=== PATIENT | male | born 1965 | race Caucasian/White ===

== ENCOUNTER 2018-11-29 15:59 | Emergency (ER) | payer OTHER, SELFPAY ==
[2018-11-29 16:02] VITALS: BP 162/81; PULSE 80; RESP 16; TEMP 36.5; O2SAT 100
--- NOTE | 2018-11-29 16:23 | W.ED.GENAD ---
Discharge Plan Disposition Patient Disposition: HOME Condition: Stable Discharge Details Chief Complaint: Orthopedic Clinical Impression: Muscle tear Primary Care Provider: Carlos Driscoll ED Provider: Josep Damian Home Meds and New Rx's Prescriptions: No Action triamcinolone acetonide 0.1 % cream 1 applic TP BID Qty: 30 RF: 1 tamsulosin 0.4 mg capsule See Rx Instructions PO HS Qty: 0 RF: 3 Discharge Instructions Additional Instructions: May continue gentle compression to area, please remove at bedtime. You will have ongoing bruising. Walking in waist deep water will assist in mobilizing the resolving hemosiderin. Please follow-up with physical therapy. Return for any acute Stand Alone Forms: Physical Therapy Referral Medical Decision Making 53-year-old male who fell on a flexed right knee 4 days ago and felt the immediate development of the medial thigh lump. Since that time is developed diffuse right lower extremity ecchymosis and swelling. He has not had any difficulty with gait. His leg extension is normal. On exam he does not appear to have quadriceps rupture. More likely medial thigh muscle rupture such as sartorius. The knee is intact. We will refer him to physical therapy. Do not feel there is indication for further work-up at this time. Discussed with him anticipated course of resolution. HPI General Mode of arrival: ambulatory. Date/Time Provider Initiated Documentation: 11/29/18 16:07. Limitations to Documentation: no limitations. Information obtained by: patient. History of Present Illness 53 year old M presents to the emergency department with the chief complaint of Right thigh injury 4 days ago, described as moderate, Quality is described as dull and constant, and is localized to the right and lower extremity. Patient reports no radiation. Patient started experiencing this day(s) and it has been constant. No relieving factors improve symptom(s), Movement worsens symptoms . Patient notes no other symptoms.. Patient did receive the following treatments prior to arrival, NSAID Related Data Home Medications Medication Instructions Recorded Confirmed tamsulosin 0.4 mg capsule See Rx Instructions PO HS #0 05/30/18 11/29/18 tab-cap triamcinolone acetonide 0.1 % 1 applic TP BID #30 gm 08/17/18 11/29/18 topical cream Previous Rx's Medication Instructions Recorded tamsulosin 0.4 mg capsule See Rx Instructions PO HS #0 02/06/19 tab-cap triamcinolone acetonide 0.1 % 1 applic TP BID #30 gm 08/17/18 topical cream Allergies Allergy/AdvReac Type Severity Reaction Status Date / Time apple Allergy Unknown Skin Rash Verified 11/29/18 16:07 General Stated Complaint: Orthopedic ANNALISA: 4 Review of Systems Review of Systems 6 systems reviewed and otherwise negative FOR[facility]LY [facility] Surgical History BROKEN TOE Family History Mother Essential hypertension Father Diabetes Heart disease Brother Alcohol abuse Essential hypertension Substance abuse Maternal Grandfather No problems noted. Paternal Grandfather Heart disease Myocardial infarction Maternal Grandmother No problems noted. Paternal Grandmother Diabetes Son No problems noted. Daughter Depression Social History Smoking/Tobacco Use Status: Current every day Tobacco Type: smokeless tobacco Quit status: considering quitting Alcohol Intake: current Alcohol Intake frequency: a few times a month Alcohol type: beer Drug use: Never Substance use type: does not use Caregiver/Support person: No Household members: spouse and children Housing: house Communication Needs: None Do you need help understanding health information?: Rarely Pets and animals: Yes Pets and animals: cat(s) Sexually active: Yes Do you think of yourself as: straight/heterosexual Current gender identity: male What is your relationship status?: How often do you talk on the phone with friends or family?: once per week How often do you get together with friends or relatives?: once per week How often do you attend evangelical or mosque services?: 1-3 times per year Do you belong to any clubs or organized social groups?: yes Panel score (0-1 are the most socially isolated patients): 2 What type of physical activity do you participate in: other Details: Tae [employer]ondo Duration: 60-90 minutes/day Frequency: 1-2 times per week Queenie/Yarsani: No preference Agree to transfusion: No Seatbelt use: always Drive intox or ride w/intox taxi 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 Pleasant, well groomed, interactive. HEAD: Normocephalic, atraumatic ENT: Mucous membranes moist, oropharynx unremarkable, External ear exam unremarkable EYES: PERRL, EOMI EXT: Full ROM, motor is graded 5 out of 5 in the bilateral lower extremity. There is ecchymosis/bruising from the right mid thigh medially distal all the way to the foot and ankle. Sensation intact throughout. Abduction and abduction of the right leg are normal. Neuro: Grossly normal neurologic exam, conversant, interactive. Psych: Speech fluent, thoughts congruent, affect normal Course Vital Signs Temperature 36.5 C 11/29/18 16:02 Pulse 80 11/29/18 16:02 Respiratory Rate 16 11/29/18 16:02 Blood Pressure 162/81 H 11/29/18 16:02 Pulse Oximetry 100 11/29/18 16:02 Temperature 36.5 C 11/29/18 16:02 Temperature Source Skin 11/29/18 16:02 Pulse 80 11/29/18 16:02 Respiratory Rate 16 11/29/18 16:02 Respiratory Effort Non-Labored 11/29/18 16:06 Blood Pressure 162/81 H 11/29/18 16:02 Blood Pressure Position Sitting 11/29/18 16:02 Pulse Oximetry 100 11/29/18 16:02 Oxygen Delivery Method Room Air 11/29/18 16:02 Oxygen Flow Rate 0 11/29/18 16:02 Pain Level 2 11/29/18 16:02
== END 2018-11-29 16:39 | disposition home or self-care (01) ==
LOC: ER 16:41
PROVIDERS: Emergency Provider Emergency Medicine; PCP Family Medicine
DX: S76.811A Strain of other specified muscles, fascia and tendons at thigh level, right thigh, initial encounter (principal); W01.198A Fall on same level from slipping, tripping and stumbling with subsequent striking against other object, initial encounter
CPT/HCPCS: 99282

== ENCOUNTER 2018-12-17 09:17 | Outpatient (CLI) | payer OTHER, SELFPAY ==
--- NOTE | 2018-12-17 16:00 | DI.RAD_ITS ---
SYMPTOM/DIAGNOSIS: INJURY/EFFUSION S89.91XA RIGHT KNEE: There is soft tissue swelling seen anterior to the patella tendon. No fracture or joint space narrowing is seen. No soft tissue calcifications or joint effusion seen. IMPRESSION: Pre-patellar soft tissue swelling.
== END 2018-12-17 09:37 ==
PROVIDERS: PCP Family Medicine; Visit Provider Family Medicine
DX: S89.91XA Unspecified injury of right lower leg, initial encounter (principal); M79.89 Other specified soft tissue disorders; M25.561 Pain in right knee
CPT/HCPCS: 73562

== ENCOUNTER 2019-11-01 03:26 | Outpatient (CLI) | payer OTHER, SELFPAY ==
[2019-11-01 08:42] LABS: Anion Gap 8.3 mmol/L (3-11); BUN 16 mg/dL (7-18); CO2 27.7 mmol/L (21.0-32.0); CREATININE 1.27 mg/dL (0.70-1.30); Calcium 9.1 mg/dL (8.5-10.1); Calculated LDL 140 mg/dL (<100); Chloride 105 mmol/L (98-107); Cholesterol 229 mg/dL (<200); Estimated GFR 59.79 (mL/min/1.73m2); Glucose 93 mg/dL (74-106); HDL Cholesterol 49 mg/dL (40-60); Potassium 4.7 mmol/L (3.5-5.1); Sodium 141 mmol/L (136-145); Triglyceride 201 mg/dL (<150)
== END 2019-11-01 03:46 ==
PROVIDERS: PCP Family Medicine; Visit Provider Family Medicine
DX: E78.5 Hyperlipidemia, unspecified (principal); I10 Essential (primary) hypertension
CPT/HCPCS: 36415; 80048; 80061

== ENCOUNTER 2020-05-07 07:25 | Emergency (ER) | payer OTHER, SELFPAY ==
[2020-05-07] VITALS (40 sets, daily range): BP systolic 138–189; BP diastolic 82–105; PULSE 64–87; RESP 14–36; TEMP 36.6; O2SAT 80–97
--- NOTE | 2020-05-07 07:30 | RT.EKG_ITS ---
APPROVED REPORT Exam: Resting ECG Patient Location: E HR:77 bpm ECG Measurements Heart Rate 77 AXIS HI 124 P 29 QRSd 80 QRS 15 QT 362 T 29 QTc 410 Conclusion Sinus rhythm...normal P axis, V-rate 60- 99 Physician: Rate 77, sinus rhythm, intervals normal, no STEMI, no significant ST elevations or depress ions, no evidence of significant heart strain.
--- NOTE | 2020-05-07 07:30 | DI.RAD_ITS ---
EXAM: XR CHEST 2V PA LATERAL CLINICAL HISTORY: left chest pain TECHNIQUE: 2D digital imaging was performed. COMPARISON: CR CHEST 2 VIEWS PA,LAT from 08/01/2013 FINDINGS: The heart is not enlarged. The lungs are clear and well expanded. No pleural effusion seen. Mediastin al contours appear intact. IMPRESSION: Normal chest. RADIATION DOSE DELIVERED: Total DLP
--- NOTE | 2020-05-07 07:38 | ED.GENADUL_ITS ---
Discharge Plan Disposition Patient Disposition: HOME Condition: Stable Discharge Details Clinical Impression: Chest heaviness Primary Care Provider: Ketan Rodríguez ED Provider: Josep Damian Home Meds and New Rx's Prescriptions: No Action No Known Home Meds RF: 0 Discharge Instructions Instructions: Chest Pain (ED) Additional Instructions: We have ordered an outpatient stress test for you with a preprocedure COVID-19 test done today. Home to rest today. Return if you develop persistent chest discomfort, shortness of breath, or any other acute concerns. Medical Decision Making <Tej Ramirez, - Last Filed: 05/07/20 07:44> 55-year-old male with a past medical history of previous kidney stones, obstructive sleep apnea, hypertension, presents today for evaluation of chest heaviness. Patient states that for the last 1 to 2 weeks he has been experiencing mild chest heaviness, described as an achy heavy sensation in his left chest. Does not appear to be worsened with exertion, it seems to come and go without any particular exacerbating or relieving factors. Today and yesterday it notably worsened, independent of any exacerbating component, and also developed an associated left arm tingling and achiness. He denies any pleuritic chest pain, he denies any symptoms like this otherwise in the past. He denies any history of personal cardiac disease but he does have a family history of cardiac disease and Iuhaa-Tubhgjfth-Okent in his son and myocardial infarction in his father at the age of 65. Patient denies any tobacco abuse, IV or illicit drug use. He denies any previous PE, recent surgeries, long trips or procedures. He does though admits to feeling of tightness in his left calf a few days ago, and then that transitions to a feeling of tightness in his left medial thigh, both of which have now resolved. He denies any syncope, but does admit to mild occasional lightheadedness and fogginess. Patient has no other complaints at this time. Exam is notably unremarkable, vital signs stable, initial EKG shows no signs of STEMI, Qazmj-Auoqzeuwv-Edjrm, or other significant abnormality. Differential is broad, but includes atypical cardiac etiology, occasional dysrhythmia, is leg pain is odd, and may be associated with DVT but this seems well unlikely. We will get a D-dimer. Patient will be given 324 aspirin, we will monitor closely and reassess. The patient will be signed out to my colleague Dr. Josep Damian for follow-up on all labs and imaging, with reassessment. EKG 7: 32 Rate 77, sinus rhythm, intervals normal, no STEMI, no significant ST elevations or depressions, no evidence of significant heart strain. <Josep Damian MD - Last Filed: 05/07/20 11:03> 54-year-old male signed out to me by Dr. Ramirez. Please see his note regarding initial presentation, exam, plan of care. Patient observed on a director of cardiac cath lab over 3+ hours. He had no persistent complaint of discomfort. 2 separate troponins were obtained and negative. D- dimer was negative. Chest x-ray unremarkable. I do feel patient ought to have outpatient stress test which I have ordered. We will do a preprocedural Covid test prior to discharge. He is stable and improved, understands indications to return to the ER for reevaluation, and will follow-up for outpatient stress testing. * HPI <Tej Ramirez DO - Last Filed: 05/07/20 07:44> General Date/Time Provider Initiated Documentation: 05/07/20 07:29 . HPI Narrative: 55-year-old male with a past medical history of previous kidney stones, obstructive sleep apnea, hypertension, presents today for evaluation of chest heaviness. Patient states that for the last 1 to 2 weeks he has been expe riencing mild chest heaviness, described as an achy heavy sensation in his left chest. Does not appear to be worsened with exertion, it seems to come and go without any particular exacerbating or relieving factors. Today and yesterday it notably worsened, independent of any exacerbating component, and also developed an associated left arm tingling and achiness. He denies any pleuritic chest pain, he denies any symptoms like this otherwise in the past. He denies any history of personal cardiac disease but he does have a family history of cardiac disease and Pjoqt-Ctjyyiwzt-Vfywb in his son and myocardial infarction in his father at the age of 65. Patient denies any tobacco abuse, IV or illicit drug use. He denies any previous PE, recent surgeries, long trips or procedures. He does though admits to feeling of tightness in his left calf a few days ago, and then that transitions to a feeling of tightness in his left medial thigh, both of which have now resolved. He denies any syncope, but does admit to mild occasional lightheadedness and fogginess. Patient has no other complaints at this time. Related Data Home Medications Medication Instructions Recorded Confirmed Unknown [No Known Home Meds] 05/07/20 05/07/20 Allergies Allergy/AdvReac Type Severity Reaction Status Date / Time apple Allergy Unknown Skin Rash Verified 05/07/20 07:44 General ANNALISA: 4 Review of Systems <Tej Ramirez DO - Last Filed: 05/07/20 07:44> All systems reviewed & are unremarkable except as noted in HPI and below PFSH <Tej Ramirez DO - Last Filed: 05/07/20 07:44> Medical History Knee effusion, right ice, elevation above the level of the heart avoid overuse if not improved in 1 week, will consider draining the knee Pt verbalized understanding and agreement with plan Surgical History BROKEN TOE Family History Mother Essential hypertension Father , 62 Diabetes Heart disease Brother Alcohol abuse Essential hypertension Substance abuse Maternal Grandfather No problems noted. Paternal Grandfather Heart disease Myocardial infarction Maternal Grandmother No problems noted. Paternal Grandmother Diabetes Son No problems noted. Daughter Depression Social History Smoking/Tobacco Use Status: Never Tobacco: How many years used: 40 Smokeless tobacco user: chewing tobacco Quit status: considering quitting Smoking risk assessment performed?: Yes Alcohol Intake: current Alcohol Intake frequency: a few times a month Alcohol type: beer Drug use: Never Substance use type: does not use Caregiver/Support person: No Household members: spouse and children Housing: house Communication Needs: None Do you need help understanding health information?: Rarely Pets and animals: Yes Pets and animals: cat(s) Sexually active: Yes Do you think of yourself as: straight/heterosexual Current gender identity: male What is your relationship status?: How often do you talk on the phone with friends or family?: once per week How often do you get together with friends or relatives?: once per week How often do you attend congregational or religion services?: 1-3 times per year Do you belong to any clubs or organized social groups?: no Panel score (0-1 are the most socially isolated patients): 1 Duration: 60-90 minutes/day Frequency: 1-2 times per week Queenie/Adventist: No preference Agree to transfusion: No Seatbelt use: always Helmet use: Yes Drive 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 3.ENT: Atraumatic external nose and ears. Moist MM. Neck: Symmetric, trachea mid line, No thyromegaly. 4.CVS: +S1/S2, No murmurs or gallops. Peripheral pulses 2+ and equal in all extremities. Brisk capillary refill in all extremities. 5.RESP: Unlabored respiratory effort. Clear to auscultation bilaterally. No wheezes rales or rhonchi 6.GI: Soft, Nontender/Nondistended, No hepatosplenomegaly. No guarding or rebound. 7.MSK: Normocephalic/Atraumatic, Extremities w/o deformity or ttp No cyanosis or clubbing, Normal movement of all extremities, no calf tenderness on the left or right, no pitting edema. Pulses intact throughout. 8.Skin: Warm, Dry. No rashes or lesions. 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 Sensation grossly intact, no focal neurologic deficits. 10.Psych: (AAO) x3. Appropriate mood and affect Sign Out <Tej Ramirez DO - Last Filed: 05/07/20 07:44> Sign Out Data: Sign Out Comment: Follow-up on labs, imaging. Chest tightness in the left. Recommend serial tropes Last updated by Tej Ramirez DO at 05/07/20 07:44
[2020-05-07] MEDS: Aspirin 81 MG CHEW 324 MG CH (07:46)
[2020-05-07 07:48] LABS: Abs Immature Grans 0.02 10^3/uL (0.0-0.06); Absolute Basophil Count 0.03 10^3/uL (0.0-0.2); Absolute Eosinophil Count 0.12 10^3/uL (0.0-0.7); Absolute Lymphocyte Count 1.39 10^3/uL (1.2-3.4); Absolute Monocyte Count 0.31 10^3/uL (0.1-0.8); Absolute Neutrophil Count 3.35 10^3/uL (1.2-6.7); Basophils % 0.6; Eosinophils % 2.3; HCT 46.7 % (40.0-50.0); HGB 16.2 g/dL (13.5-17.5); Immature Grans % 0.4; Lymphocytes % 26.6; MCH 29.5 pg (27.0-33.0); MCHC 34.7 % (32.0-36.0); MCV 84.9 fL (80-95); MPV 10.3 fL (8.0-11.0); Monocytes % 5.9; Neutrophils % 64.2; Nucleated RBC 0 %; Platelet Count 203 10^3/uL (130-400); RDW 12.2 % (11.8-14.1); RDW-SD 37.8 fL; WBC 5.22 10^3/uL (4.4-10.8)
[2020-05-07 07:56] LABS: Bilirubin Negative (Negative); Blood Trace-lysed (Negative); Clarity Clear (Clear); Glucose Negative (Negative); Ketones Negative (Negative); Leukocyte Esterase Negative (Negative); Nitrite Negative (Negative); Specific Gravity 1.025 (1.005-1.025); Urobilinogen 0.2 EU/dL (Up TO 0.2)
[2020-05-07 07:58] LABS: Lipase 112 U/L (73-393)
[2020-05-07 07:59] LABS: Ammonia 17 umol/L (11-32)
[2020-05-07 08:01] LABS: Epithelial Cells Rare HPF (Negative); RBC 0-2 HPF (0-2); WBC 0-2 HPF (0-5)
[2020-05-07 08:02] LABS: Bacteria Negative HPF (Negative); C & S Indicated? No; Casts Negative LPF (Negative); Crystals Negative HPF (Negative); Mucus Negative (Negative)
[2020-05-07 08:02] LABS: PTT Activated 26.3 sec (21.0-27.5); Prothrombin Time 10.2 sec (9.3-11.0)
[2020-05-07 08:07] LABS: ALT 35 U/L (16-63); AST 17 U/L (15-37); Albumin 4.4 g/dL (3.4-5.0); Alkaline Phosphatase 85 U/L (46-116); Anion Gap 8.8 mmol/L (3-11); BUN 19 mg/dL (7-18); Bilirubin, Total 0.5 mg/dL (0.2-1.0); CO2 26.2 mmol/L (21.0-32.0); CREATININE 1.27 mg/dL (0.70-1.30); Calcium 8.9 mg/dL (8.5-10.1); Chloride 103 mmol/L (98-107); Estimated GFR 59.55 (mL/min/1.73m2); Glucose 100 mg/dL (74-106); Magnesium 2.3 mg/dL (1.8-2.4); NT-proBNP 33 pg/mL (<300); Potassium 4.2 mmol/L (3.5-5.1); Sodium 138 mmol/L (136-145); Total Protein 7.8 g/dL (6.4-8.2); Troponin I < 0.05 ng/mL (<0.06)
[2020-05-07 08:17] LABS: D-Dimer 222 ng/mlFEU (<500)
--- NOTE | 2020-05-07 10:30 | RT.EKG_ITS ---
APPROVED REPORT Exam: Resting ECG Patient Location: E HR:69 bpm ECG Measurements Heart Rate 69 AXIS TX 131 P 28 QRSd 81 QRS 12 QT 370 T 29 QTc 395 Conclusion Sinus rhythm.
[2020-05-07 10:58] LABS: Troponin I < 0.05 ng/mL (<0.06)
[2020-05-08 15:34] LABS: COVID-19 RT-PCR Result NEGATIVE (Negative)
--- NOTE | 2020-05-08 16:54 | NUR.NOTE ---
Nursing Note: Contacted pt via phone and notified of negative covid test results.
== END 2020-05-07 11:25 | disposition home or self-care (01) ==
PROVIDERS: Student in an Organized Health Care Education/Training Program; Emergency Provider Emergency Medicine; PCP Family Medicine
DX: R07.89 Other chest pain (principal); R20.2 Paresthesia of skin; I10 Essential (primary) hypertension; Z82.49 Family history of ischemic heart disease and other diseases of the circulatory system; Z03.818 Encounter for observation for suspected exposure to other biological agents ruled out
CPT/HCPCS: 36415; 80053; 83690; 93005; 99285; U0003; 71046; 81003; 81015; 82140; 83735; 83880; 84484; 85025; 85379; 85610; 85730; 93010

== ENCOUNTER → 2020-05-14 02:14 | Outpatient (CLI) | payer OTHER, SELFPAY ==
--- NOTE | 2020-05-14 14:00 | ETT_ITS ---
APPROVED REPORT Exam: Exercise Treadmill Patient Location: Out-Patient Room/Bed: Stress Nurse: Gina Bolton RN Ordering Provider:NAMITA SCHAEFER, Contact Number: [phone] BMI: 33.20 Baseline Rhythm: Sinus Rhythm Indications: Chest pain Medical History Medical History: REMBERTO, Hypertension Cardiac Medications: None. Allergies: Apple Cardiac Risk Factors: Hypertension, HLD, family hx Previous Cardiac Procedures: None. Pretest Chest Pain Characteristics: None. Exercise History: Sedentary Physical Disabilities: None. Lung Sounds: Clear to auscultation Heart Sounds: Regular Stress Test Details Test: Exercise stress testing was performed using a [place] protocol. Rest Stress HR Resting HR Supine: 77 bpm Max Heart Rate (APMHR): 168 bpm Resting HR Standin bpm Target HR (85% APMHR): 142 bpm Max HR Achieved: 176 bpm % of APMHR: 104 Recovery HR: 99 bpm HR response to stress: Normal HR response to stress BP Resting BP Supine: 152/90 mmHg Resting BP Standin/92 mmHg Max BP: 178/70 mmHg Recovery BP: 146/88 mmHg BP response to stress: Normal blood pressure response to stress. ECG Resting ECG: Sinus Rhythm Ectopy: None. Stress ECG: Sinus Tachycardia ST Change: Horizontal ST depression Lead(s): II, AVF, V3, V4, V5, V6 Stage: [address] Deviation: 2.5 mm Arrhythmia: PVCs Recovery ECG: Sinus Rhythm Recovery ST Change: Horizontal ST depression Lead(s): II, AVF, V3, V4, V5, V6 Recovery ST Deviation: 1 mm Recovery Arrhythmia: PVC Comment: Return to baseline by minute 3 Clinical Reason for Termination: Dyspnea Stress Symptoms: Dyspnea Exercise duration: 12 min55 sec Highest Stage Reached: Stage 5: 5.0 mph at 18% grade. Exercise capacity: 14.11 METs Hernandez Treadmill Score: 10.7 Rate Pressure Product: [id number] Stress ECG Conclusion 1. Electrocardiogram showed voltage for left ventricular hypertrophy 2. Patient exercised on the [place] protocol and completed a workload of 14.11 METS, limited by shortne ss of breath. Excellent functional capacity 3. Normal heart rate and blood pressure response to exercise 4. The patient achieved 100% of predicted heart rate for age 5. Electrocardiographically the test was consistent with myocardial ischemia with anterolateral ST de pression noted at peak exercise 6. Suggest repeat exercise testing with imaging if clinically indicated Hernandez Treadmill Score is 10.7 which is Low risk. Stress Test Summary STAGE Time (mins) Speed (mph) Grade (%) HR BP SYMPTOMS METS Supine 77 152/90 Standing 88 144/92 1 3 1.7 10 125 158/86 4.6 2 6 2.5 12 141 162/82 7 3 9 3.4 14 156 166/80 10.2 4 12 4.2 16 167 12.9 1 min recovery 138 178/70 3 min recovery 107 166/74 6 min recovery 99 146/88
== END ==
PROVIDERS: PCP Family Medicine; Visit Provider Emergency Medicine
DX: R07.9 Chest pain, unspecified (principal); I10 Essential (primary) hypertension; E78.5 Hyperlipidemia, unspecified; Z82.49 Family history of ischemic heart disease and other diseases of the circulatory system
CPT/HCPCS: 93017

== ENCOUNTER 2020-11-17 03:51 | Outpatient (CLI) | payer OTHER, SELFPAY ==
[2020-11-17 15:46] LABS: Cholesterol 221 mg/dL (<200); HDL Cholesterol 45 mg/dL (40-60); Triglyceride 504 mg/dL (<150)
[2020-11-17 16:15] LABS: LDL CHOLESTEROL 117 mg/dL (<100)
== END 2020-11-17 03:52 | disposition home or self-care (01) ==
LOC: LBO 03:51
PROVIDERS: PCP Nurse Practitioner Family; Visit Provider Nurse Practitioner Family
DX: E78.5 Hyperlipidemia, unspecified (principal)
CPT/HCPCS: 36415; 80061; 83721

== ENCOUNTER 2021-03-29 14:21 | Emergency (ER) | payer OTHER, SELFPAY ==
[2021-03-29] VITALS (27 sets, daily range): BP systolic 143–144; BP diastolic 88–91; PULSE 56–85; RESP 14–25; TEMP 36.3; O2SAT 96–99
--- NOTE | 2021-03-29 14:15 | RT.EKG_ITS ---
APPROVED REPORT Exam: Resting ECG Reason for Exam: chest pain Patient Location: E HR:74 bpm ECG Measurements Heart Rate 74 AXIS VT 127 P 29 QRSd 81 QRS 14 QT 367 T 43 QTc 406 Conclusion Sinus rhythm...normal P axis, V-rate 60- 99. Sinus. No STEMI. I have reviewed and interpreted ECG and agree with software generated interpretation.
--- NOTE | 2021-03-29 14:44 | ED.GENADUL_ITS ---
Discharge Plan Disposition Patient Disposition: HOME Condition: Stable Discharge Details Clinical Impression: Chest pain Primary Care Provider: David Hernandez ED Provider: Jagruti Kolb Home Meds and New Rx's Prescriptions: New atorvastatin 10 mg tablet 10 mg PO DAILY Qty: 30 RF: 0 aspirin 81 mg tablet,chewable 81 mg PO DAILY Qty: 30 RF: 0 Continued amlodipine 10 mg tablet 10 mg PO DAILY Qty: 90 RF: 4 ciclopirox [Ciclodan] 8 % solution 1 applic topical QHS 28 Days Qty: 6.6 RF: 3 tamsulosin 0.4 mg capsule 0.4 mg PO DAILY Qty: 90 RF: 4 Discharge Instructions Instructions: Chest Pain (ED) Additional Instructions: Take the cholesterol medication once a day as prescribed. Please follow-up closely within the next 3 to 5 days with PCP. They will call you to schedule a stress test. You are placed on a care management list to follow-up with cardiology within the next 1 to 2 weeks. Take a chewable baby aspirin daily. Follow up with primary care provider in 3-5 days. Return to ED sooner if any worsening or concerns. Increase oral fluids. Please take Tylenol or Ibuprofen with food every 4-6 hours as needed for pain and swelling. Referrals: David Hernandez NP [Primary Care Provider] - 5 days Maye Montano MD [ [facility] STAFF PHYSICIAN] - 2 weeks Discharge Data Discharge Date/Time-TO BE ENTERED AT DEPARTURE: 03/29/21 20:08 Medical Decision Making <SOPHIE Heller - Last Filed: 03/31/21 20:24> Patient is a pleasant 55-year-old gentleman presents today with chief complaint of left-sided chest pain and left shoulder pain. He reports the pain is similar to when he had pain last April. Began again approximately 4 to 5 days ago. Worse with exertion. He denies any shortness of breath. No fevers or chills. Denies cough. Patient states he has been taking his medications as prescribed. Has taken some Tylenol to help with the discomfort. Is not actively having chest pain. Past medical history is pertinent for positive cardiac stress test, hyperlipidemia, REMBERTO. Patient had positive cardiac stress test in April. Did not have follow-up with cardiology. Past family history is pertinent for mother having hypertension and father passing away from heart disease at age 62. EKG obtained and reviewed by Dr. Joyner. Patient is in sinus rhythm at a rate of 74. She advises no evidence of STEMI. On exam, patient appears nontoxic. Vital signs are stable. No respiratory distress. He denies any active chest pain. Lungs are clear, normal cardiac auscultation. At the end of my shift, care transitioned to Jagruti Kolb NP with CXR and labs pending. Patient had CP prior to arrival, will require repeat. Patient did have positive stress test in April. Patient may require admission and consultation with cardiology. <Jagruti Kolb - Last Filed: 03/29/21 20:28> Care assumed from provider (SOPHIE Borrego) Please see their initial HPI, PE, and documentation. Discussed patient details and case and pending workup and disposition. Patient is hemodynamically stable, and alert and oriented. At the time of signout we are awaiting a second troponin and possible admission. Second troponin within normal limits. 1924: Discussed lab results with patient and family and discussed option for admission versus outpatient follow-up and outpatient stress test. Patient reports that he would rather be discharged home with outpatient follow-up with cardiology and stress test. He has been symptom-free since he is being in the emergency department. I did look up his previous cholesterol labs that were done in October his triglycerides were 500, total cholesterol 221, LDLs were also elevated at 114. I also did look up the stress test findings from April which ST depression in leads II, aVF, V3, V4 V5 V6 at peak exercise. Heart score at this time is low at 3. Patient discharged patient. All questions were answered to the best my ability. They are requesting a statin for previous high cholesterol results. Atorvastatin 10 mg daily written. Also written for 81 mg chewable baby aspirin. Discuss strict return instructions, verbalized understanding. 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 Patient remained chest pain-free for the remainder of stay. This text was generated using [employer] system, please disregard any oddities of phrase or misspellings. HPI <SOPHIE Heller - Last Filed: 03/31/21 20:24> General Mode of arrival: ambulatory . Date/Time Provider Initiated Documentation: 03/29/21 14:43 . Limitations to Documentation: no limitations . Information obtained by: patient, RN notes reviewed and old records reviewed . History of Present Illness 55 year old M presents to the emergency department with the chief complaint of chest pain, described as moderate, Quality is described as aching, and is localized to the chest. Patient neck and extremity (left shoulder). Patient started experiencing this day(s) and it has been intermittent. Immobilization improves symptom(s), Movement worsens symptoms (exertion) . Patient notes chest pain; denies cough, diaphoresis, fever/chills, nausea/vomiting, rash, shortness of breath, syncope and weakness. Patient did receive the following treatments prior to arrival, none Related Data Home Medications Medication Instructions Recorded Confirmed amlodipine 10 mg tablet 10 mg PO DAILY #90 tab 11/05/20 03/29/21 ciclopirox 8 % topical solution 1 applic TOPICAL QHS 28 Days #6.6 11/11/20 03/29/21 ml tamsulosin 0.4 mg capsule 0.4 mg PO DAILY #90 cap 11/20/20 03/29/21 aspirin 81 mg PO DAILY #30 tab 03/29/21 atorvastatin 10 mg PO DAILY #30 tab 03/29/21 Previous Rx's Medication Instructions Recorded amlodipine 10 mg tablet 10 mg PO DAILY #90 tab 11/05/20 ciclopirox 8 % topical solution 1 applic TOPICAL QHS 28 Days #6.6 11/11/20 ml tamsulosin 0.4 mg capsule 0.4 mg PO DAILY #90 cap 11/20/20 aspirin 81 mg PO DAILY #30 tab 03/29/21 atorvastatin 10 mg PO DAILY #30 tab 03/29/21 Allergies Allergy/AdvReac Type Severity Reaction Status Date / Time apple Allergy Unknown Skin Rash Verified 03/29/21 14:35 General Stated Complaint: Chest Pain ANNALISA: 2 Review of Systems <SOPHIE Heller - Last Filed: 03/31/21 20:24> Constitutional Constitutional: Reports as per HPI, Denies chills, Denies fever(s) and Denies headache(s) ENT Ears, Nose, Mouth, and Throat: Denies dizziness and Denies headache(s) Cardiovascular Cardiovascular: Reports as per HPI, Reports chest pain, Denies chest pain at rest, Reports chest pain with activity, Reports radiating jaw, neck or arm pain, Denies dyspnea and Denies dyspnea on exertion Respiratory Respiratory: Reports as per HPI, Denies chest congestion, Denies cough, Denies pain on inspiration, Denies pain with cough, Denies dyspnea, Denies dyspnea on exertion and Denies wheezing Gastrointestinal Gastrointestinal: Reports as per HPI, Denies abdominal pain, Denies diarrhea, Denies nausea and Denies vomiting Musculoskeletal Musculoskeletal: Reports as per HPI and Denies back pain Integumentary/Breasts Skin/Breast: Reports as per HPI and Denies rash Neurologic Neurologic: Reports as per HPI, Denies dizziness and Denies headache(s) Allergic/Immunologic Allergic/Immunologic: Denies wheezing PFSH <SOPHIE Heller - Last Filed: 03/31/21 20:24> Active Problem List (Updated 03/29/21 @ 19:33 by Jagruti Kolb) Chest pain (Acute) Nail fungus (Acute) Positive cardiac stress test (Acute) Hyperlipidemia (Chronic) Obstructive sleep apnea (Chronic 08/26/14) 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 Paternal Grandfather Heart disease Myocardial infarction Maternal Grandmother No problems noted. Paternal Grandmother Diabetes Son No problems noted. Daughter Depression Social History (Updated 11/07/20 @ 12:58 by Nancy Eisenberg) Smoking/Tobacco Use Status: Current-Occasional Tobacco Type: smokeless tobacco Tobacco: How many years used: 40 Smokeless tobacco user: chewing tobacco Quit status: considering quitting Second Hand Exposure: Yes Smoking risk assessment performed?: Yes Alcohol Intake: current Alcohol Intake frequency: a few times a week Alcohol type: beer Drug use: Never Substance use type: does not use Household members: spouse Housing: house Communication Needs: None Do you need help understanding health information?: Rarely Pets and animals: Yes Pets and animals: cat(s) and dog(s) Sexually active: Yes Do you think of yourself as: straight/heterosexual Current gender identity: male What is your relationship status?: How often do you talk on the phone with friends or family?: once per week How often do you get together with friends or relatives?: once per week How often do you attend rastafarian or yazidism services?: 1-3 times per year Do you belong to any clubs or organized social groups?: no Panel score (0-1 are the most socially isolated patients): 1 Agree to transfusion: No Seatbelt use: always Drive intox or ride w/intox motor driver: No Do you feel safe at home: Yes Do you feel safe in your relationship?: Yes Exam <SOPHIE Heller - Last Filed: 03/31/21 20:24> Const General: cooperative, healthy appearing, comfortable, no acute distress and well developed Nutritional Appearance: average body habitus and well nourished Orientation: alert, awake and oriented x3 HENMT Head: normal to inspection Ears: hearing grossly normal bilaterally Mouth: moist mucous membranes Chest Chest: normal inspection of the chest, normal palpation of entire chest wall and no crepitus Resp Effort & Inspection: normal respiratory effort, able to speak in complete sentences and no respiratory distress Auscultation: clear to auscultation bilaterally, no rales, no rhonchi and no wheezes Cardio Rate: regular rate Rhythm: regular rhythm Heart Sounds: S1 normal and S2 normal GI Inspection: normal to inspection, no edema and non-distended Palpation: soft, no hepatosplenomegaly, not firm, no guarding, not rigid and nontender Auscultation: normal bowel sounds Skin General skin exam: no rashes or lesions noted Trauma: no lacerations or abrasions Neuro General: patient alert, patient awake and patient oriented x3 Cognition: normal cognition Speech: speech normal Gait: normal gait Extrem General: normal to inspection, capillary refill normal, no pedal edema, no calf tenderness and normal gait Psych Appearance: grossly normal and well kempt Mental Status: mental status grossly normal Speech and Movement: speech and movement normal Course <SOPHIE Heller - Last Filed: 03/31/21 20:24> Vital Signs Vital signs: Vital Signs Pulse 85 03/29/21 14:32 Respiratory Rate 16 03/29/21 14:32 Blood Pressure 144/88 H 03/29/21 14:32 Pulse Oximetry 97 03/29/21 14:32 Pulse 85 03/29/21 14:32 Respiratory Rate 16 03/29/21 14:32 Respiratory Effort Non-Labored 03/29/21 14:36 Blood Pressure 144/88 H 03/29/21 14:32 Blood Pressure Position Sitting 03/29/21 14:32 Pulse Oximetry 97 03/29/21 14:32 Oxygen Delivery Method Room Air 03/29/21 14:32 Oxygen Flow Rate 0 03/29/21 14:32 Pain Level 3 03/29/21 14:32 Sign Out <SOPHIE Heller - Last Filed: 03/31/21 20:24> Sign Out Data: Sign Out Comment: Care transition to Celine Walker NP, with labs imaging pending. Patient here with chest pain on exertion. No pain actively. Received aspirin. Had a positive stress test in April but no cardiology follow-up. Patient will likely need admission and cardiac consultation. Last updated by Nolvia Yousif PA at 03/29/21 15:52
--- NOTE | 2021-03-29 14:45 | DI.RAD_ITS ---
Exam(s) XR CHEST 2V PA LATERAL EXAM: XR CHEST 2V PA LATERAL CLINICAL HISTORY: CP. TECHNIQUE: 2D digital imaging was performed. COMPARISON: CR CHEST 2 VIEWS PA,LAT from 08/01/2013 CR CHEST 2 VIEWS PA,LAT from 08/01/2013 CR XR CHEST 2V PA LATERAL from 05/07/2020 FINDINGS: Heart size is normal. The mediastinum is not widened. Right lung is clear. Small density is noted in the lingular segment left lung adjacent heart border, not evident previously. This may represent small nodule. Measures approximately 5 x 6 millimeters no pleural effusions IMPRESSION: No pulmonary infiltrates but there appears to be a small nodular density in the left lung adjacent to the heart border, not evident on the prior 2 chest x-rays. This may represent a small nodule. Appr opriate follow-up recommended. DATA REPOSITORY: RADIATION DOSE DELIVERED:
[2021-03-29 15:09] LABS: Abs Immature Grans 0.02 10^3/uL (0.0-0.06); Absolute Basophil Count 0.04 10^3/uL (0.0-0.2); Absolute Eosinophil Count 0.08 10^3/uL (0.0-0.7); Absolute Lymphocyte Count 1.62 10^3/uL (1.2-3.4); Absolute Monocyte Count 0.36 10^3/uL (0.1-0.8); Absolute Neutrophil Count 2.97 10^3/uL (1.2-6.7); Basophils % 0.8; Eosinophils % 1.6; HCT 43.7 % (40.0-50.0); HGB 15.1 g/dL (13.5-17.5); Immature Grans % 0.4; Lymphocytes % 31.8; MCH 29.7 pg (27.0-33.0); MCHC 34.6 % (32.0-36.0); MCV 85.9 fL (80-95); MPV 10.1 fL (8.0-11.0); Monocytes % 7.1; Neutrophils % 58.3; Nucleated RBC 0 %; Platelet Count 227 10^3/uL (130-400); RBC 5.09 10^6/uL (4.36-5.78); RDW 12.9 % (11.8-14.1); WBC 5.09 10^3/uL (4.4-10.8)
[2021-03-29] MEDS: Aspirin 81 MG CHEW 324 MG CH (15:10)
[2021-03-29 15:26] LABS: ALT 33 U/L (16-63); Albumin 4.3 g/dL (3.4-5.0); Alkaline Phosphatase 95 U/L (46-116); Anion Gap 8.8 mmol/L (3-11); BUN 19 mg/dL (7-18); Bilirubin, Total 0.3 mg/dL (0.2-1.0); CO2 27.2 mmol/L (21.0-32.0); CREATININE 1.5 mg/dL (0.70-1.30); Calcium 9.1 mg/dL (8.5-10.1); Chloride 105 mmol/L (98-107); Estimated GFR 48.95 (mL/min/1.73m2); Glucose 113 mg/dL (74-106); Magnesium 2.5 mg/dL (1.8-2.4); Potassium 3.8 mmol/L (3.5-5.1); Sodium 141 mmol/L (136-145); Total Protein 7.6 g/dL (6.4-8.2)
[2021-03-29 15:36] LABS: PTT Activated 25.1 sec (21.0-27.5); Prothrombin Time 10.1 sec (9.3-11.0)
[2021-03-29 15:44] LABS: AST 17 U/L (15-37); Troponin I < 0.05 ng/mL (<0.06)
[2021-03-29] MEDS: Normal Saline 1,000 ML 500 ML IV (16:32)
--- NOTE | 2021-03-29 18:15 | RT.EKG_ITS ---
APPROVED REPORT Exam: Resting ECG Reason for Exam: chest pain Patient Location: E HR:61 bpm ECG Measurements Heart Rate 61 AXIS AK 128 P 26 QRSd 85 QRS 13 QT 409 T 19 QTc 413 Conclusion Sinus rhythm...normal P axis, V-rate 60- 99
[2021-03-29 18:57] LABS: Troponin I < 0.05 ng/mL (<0.06)
--- NOTE | 2021-03-29 21:59 | NUR.NOTE ---
Faxed referral [facility] for f/u in 1-2 weeks per Jagruti Kolb.
== END 2021-03-29 20:08 | disposition home or self-care (01) ==
PROVIDERS: Physician Assistant; Emergency Provider Registered Nurse Emergency; PCP Nurse Practitioner Family
DX: R07.89 Other chest pain (principal); E78.5 Hyperlipidemia, unspecified; R94.30 Abnormal result of cardiovascular function study, unspecified; Z82.49 Family history of ischemic heart disease and other diseases of the circulatory system
CPT/HCPCS: 36415; 80053; 93005; 96360; 96361; 99285; 71046; 83735; 84484; 85025; 85610; 85730; 93010; 99281

== ENCOUNTER 2021-04-01 01:13 | Outpatient (CLI) | payer OTHER, SELFPAY ==
--- NOTE | 2021-04-01 15:00 | ETT_ITS ---
APPROVED REPORT Exam: Exercise Treadmill Patient Location: Out-Patient Room/Bed: Stress Nurse: Gina Bolton RN Ordering Provider:TANIKA YAP, Contact Number: [phone] BMI: 32.88 Baseline Rhythm: Sinus Rhythm Indications: Chest pain Medical History Medical History: Hypertension, hyperlipidemia, REMBERTO, hx + stress test 04/2020 Cardiac Medications: Amlodipine, atorvastatin, aspirin Allergies: Apples Cardiac Risk Factors: Hypertension, hyperlipidemia, family hx Previous Cardiac Procedures: None Pretest Chest Pain Characteristics: None Exercise History: Sedentary Physical Disabilities: None Lung Sounds: Clear to auscultation Heart Sounds: Regular Stress Test Details Test: Exercise stress testing was performed using a [place] protocol. Rest Stress HR Resting HR Supine: 64 bpm Max Heart Rate (APMHR): 167 bpm Resting HR Standin bpm Target HR (85% APMHR): 141 bpm Max HR Achieved: 154 bpm % of APMHR: 92 Recovery HR: 80 bpm HR response to stress: Normal HR response to stress BP Resting BP Supine: 138/76 mmHg Resting BP Standin/70 mmHg Max BP: 170/70 mmHg Recovery BP: 138/76 mmHg BP response to stress: Normal blood pressure response to stress. ECG Resting ECG: Sinus Rhythm, Sinus Rhythm Ectopy: None Stress ECG: Sinus Tachycardia ST Change: Horizontal ST depression Lead(s): II, III, aVF, V4-V6 Stage: [address] Deviation: 2.5 mm Arrhythmia: None Recovery ECG: Sinus Rhythm Recovery ST Change: Horizontal ST depression Lead(s): II, III, aVF, V4-V6 Recovery Arrhythmia: None Comment: ST depression resolved by minute 4 of recovery Clinical Reason for Termination: Test terminated by RN due to ST depression and CP symptoms Stress Symptoms: General Fatigue, Chest pain, Dyspnea Exercise duration: 10 min02 sec Highest Stage Reached: Stage 4: 4.2 mph at 16% grade. Exercise capacity: 11.83 METs Hernandez Treadmill Score: 4.3 Rate Pressure Product: [id number] Stress ECG Conclusion 1. Resting electrocardiogram showed voltage for left ventricular hypertrophy 2. The patient exercised on the [place] protocol and completed a workload of 11.83 METS 3. Normal heart rate and blood pressure response to exercise. The patient achieved 92% of predicted heart rate for age 4. Electrocardiographically the test was consistent with myocardial ischemia with inferior and prem lateral ST depression 5. There were no significant dysrhythmias 6. The test was similar to an exercise test from April 2019 7. Suggest repeat with imaging if clinically indicated Hernandez Treadmill Score is 4.3 which is Moderate risk. Stress Test Summary STAGE Time (mins) Speed (mph) Grade (%) HR BP SYMPTOMS METS Supine 64 138/76 Standing 83 140/70 SpO2 94% 1 3 1.7 10 109 144/70 SpO2 96% 4.6 2 6 2.5 12 136 154/62 SpO2 96% 7 3 9 3.4 14 145 170/70 SpO2 85% 10.2 4 12 4.2 16 Chest pain 3/10, SpO2 86% 12.9 1 min recovery 111 170/66 CP resolving, SpO2 96% 3 min recovery 79 152/70 CP resolving, SpO2 97% 6 min recovery 80 138/76 CP resolved, SpO2 96%
== END 2021-04-01 01:33 ==
LOC: DI 01:13
PROVIDERS: PCP Nurse Practitioner Family; Visit Provider Registered Nurse Emergency
DX: R07.9 Chest pain, unspecified (principal); I25.5 Ischemic cardiomyopathy; I10 Essential (primary) hypertension; E78.5 Hyperlipidemia, unspecified; Z82.49 Family history of ischemic heart disease and other diseases of the circulatory system
CPT/HCPCS: 93017

== ENCOUNTER 2021-04-26 10:56 | Outpatient (CLI) | payer BC, SELFPAY ==
--- NOTE | 2021-04-26 10:45 | RT.EKG_ITS ---
APPROVED REPORT Exam: Resting ECG Reason for Exam: [employer], Office [place] Patient Location: O HR:81 bpm ECG Measurements Heart Rate [address] 113 P 65 QRSd 78 QRS 49 QT 485 T 117 QTc 563 Conclusion Sinus rhythm...normal P axis, V-rate 50- [address] interval...CT int <120mS Nondiagnostic ST-T abnormalities
== END 2021-04-26 10:57 | disposition home or self-care (01) ==
LOC: DI.CARD 10:57
PROVIDERS: PCP Nurse Practitioner Family; Visit Provider Internal Medicine Cardiovascular Disease
DX: R94.39 Abnormal result of other cardiovascular function study (principal)
CPT/HCPCS: 93010

== ENCOUNTER 2021-04-27 03:17 | Outpatient (CLI) | payer BC, SELFPAY ==
[2021-04-27 15:56] LABS: PTT Activated 25.5 sec (21.0-27.5); Prothrombin Time 9.8 sec (9.3-11.0)
[2021-04-27 16:23] LABS: Abs Immature Grans 0.02 10^3/uL (0.0-0.06); Absolute Basophil Count 0.04 10^3/uL (0.0-0.2); Absolute Eosinophil Count 0.19 10^3/uL (0.0-0.7); Absolute Monocyte Count 0.46 10^3/uL (0.1-0.8); Absolute Neutrophil Count 3.62 10^3/uL (1.2-6.7); Basophils % 0.6; HCT 45.5 % (40.0-50.0); HGB 15.3 g/dL (13.5-17.5); Immature Grans % 0.3; Lymphocytes % 31.6; MCH 28.9 pg (27.0-33.0); MCHC 33.6 % (32.0-36.0); MPV 10.7 fL (8.0-11.0); Monocytes % 7.3; Neutrophils % 57.2; Nucleated RBC 0 %; Platelet Count 219 10^3/uL (130-400); RBC 5.29 10^6/uL (4.36-5.78); RDW 12.7 % (11.8-14.1); RDW-SD 39.8 fL; WBC 6.33 10^3/uL (4.4-10.8)
[2021-04-27 16:38] LABS: Anion Gap 8.6 mmol/L (3-11); BUN 19 mg/dL (7-18); CO2 30.4 mmol/L (21.0-32.0); CREATININE 1.1 mg/dL (0.70-1.30); Calcium 9.3 mg/dL (8.5-10.1); Chloride 103 mmol/L (98-107); Glucose 92 mg/dL (74-106); Potassium 4.4 mmol/L (3.5-5.1); Sodium 142 mmol/L (136-145)
== END 2021-04-27 03:18 | disposition home or self-care (01) ==
LOC: LBO 03:18
PROVIDERS: PCP Nurse Practitioner Family; Visit Provider Internal Medicine Cardiovascular Disease
DX: E78.2 Mixed hyperlipidemia (principal); R07.9 Chest pain, unspecified; R94.39 Abnormal result of other cardiovascular function study
CPT/HCPCS: 36415; 80048; 85025; 85610; 85730

== ENCOUNTER 2021-11-20 09:46 | Emergency (ER) | payer BC, SELFPAY ==
[2021-11-20 09:51] VITALS: BP 149/80; PULSE 68; RESP 18; O2SAT 98
--- NOTE | 2021-11-20 10:00 | DI.CT_ITS ---
Exam(s) CT ABDOMEN PELVIS WO EXAM: CT ABDOMEN PELVIS WO INDICATION: right flank pain, hx of kidney stones. COMPARISON: CT RENAL COLIC WO CONTRAST from 09/15/2015 TECHNIQUE: CT examination was performed without contrast administration. FINDINGS: Images obtained through the lung bases are unremarkable. Visualized portions of the liver and splee n appear intact. Visualized portions of the pancreas are unremarkable. Gallbladder and bile ducts are CT normal. Abdominal aorta is of normal diameter. No significant abdominal wall hernia. No significant abdominal or pelvic adenopathy. Adrenals appear normal bilaterally. The kidneys are normal in size and shape. There is no evidence of a renal mass, hydronephrosis, or n ephrolithiasis. No ureteral dilatation or calcification identified. Urinary bladder shows mild wall thickening which may be secondary to chronic bladder outlet obstruction, cystitis not excluded.. IMPRESSION: Mild urinary bladder wall thickening which is nonspecific and which may represent chronic bladder out let obstruction versus cystitis. No urinary tract calcification or obstruction. RADIATION DOSE DELIVERED: 929.8mGy.cm DLP 929.8mGy.cm Total DLP !Error CTDIvol RADIATION OPTIMIZATION: All CT scans at this facility use at least one of these dose optimization te chniques: automated exposure control; mA and/or kV adjustment per patient size (includes targeted exa ms where dose is matched to clinical indication); or iterative reconstruction.
--- NOTE | 2021-11-20 10:19 | W.ED.GENAD ---
Discharge Plan Disposition Patient Disposition: HOME Condition: Stable Discharge Details Clinical Impression: Back pain Primary Care Provider: David Hernandez ED Provider: James Romero Home Meds and New Rx's Prescriptions: New lidocaine [Lidoderm] 5 % adhesive patch,medicated 1 patch topical DAILY Qty: 15 0RF Rx Instructions: leave on most painful area for up to 12 hrs cyclobenzaprine 5 mg tablet 5 mg PO DAILY PRN (Reason: muscle spasm) Qty: 10 0RF No Action aspirin 81 mg tablet,chewable 81 mg PO DAILY Qty: 90 4RF atorvastatin 10 mg tablet 10 mg PO DAILY Qty: 90 4RF ciclopirox [Ciclodan] 8 % solution 1 applic topical QHS 28 Days Qty: 6.6 3RF amlodipine 10 mg tablet 10 mg PO DAILY Qty: 90 4RF tamsulosin 0.4 mg capsule 0.4 mg PO DAILY Qty: 90 3RF Discharge Instructions Instructions: Back Pain (ED) Additional Instructions: Please follow-up with your primary care physician. Please take medications as prescribed. On your CT scan you were found to have an incidental lung nodule that can be followed up as an outpatient with your primary care physician by having further imaging performed within the next couple of months to a year depending on your risk factors. Please return to the emergency department if you develop any worsening symptoms. Medical Decision Making 56-year-old male history of kidney stones presents with atraumatic right flank discomfort, worse with movement specifically flexion of neck towards chest. Afebrile nontoxic no urinary symptoms. No CVA tenderness no midline spinal tenderness. Neurologically intact moving all extremities ambulatory without assistance. No rashes noted. Consider musculoskeletal pain such as muscle spasm versus strain versus renal colic versus less likely pyelonephritis or UTI. Low suspicion for colonic process or cardiac process given history and physical. Will obtain screening urinalysis and CT Noncon abdomen pelvis. Patient does not want any analgesia at this time. Disposition likely home with follow-up pending results 11: 20 patient resting comfortably no acute distress. No evidence of kidney stone. Does have microscopic hematuria. Incidental small lung nodule on CT. Patient be given anti-inflammatory analgesia for likely muscle strain. HPI General Date/Time Provider Initiated Documentation: 11/20/21 09:48. HPI Narrative: 56-year-old male history of kidney stones presents with right flank pain over the past 2 weeks, pain is intermittent in nature can be worse with movement specifically with bending of his neck towards his chest. Denies nausea vomiting or urinary symptoms. No history of lithotripsy or stenting. Has passed his stones naturally. Related Data Home Medications Medication Instructions Recorded Confirmed ciclopirox 8 % topical solution 1 applic topical QHS 4 weeks #6.6 11/11/20 11/20/21 (Ciclodan) mL aspirin 81 mg chewable tablet 81 mg PO DAILY #90 tabs 04/21/21 11/20/21 atorvastatin 10 mg tablet 10 mg PO DAILY #90 tabs 04/21/21 11/20/21 amlodipine 10 mg tablet 10 mg PO DAILY #90 tabs 10/27/21 11/20/21 tamsulosin 0.4 mg capsule 0.4 mg PO DAILY #90 caps 11/16/21 11/20/21 cyclobenzaprine 5 mg tablet 5 mg PO DAILY PRN muscle spasm #10 11/20/21 tabs lidocaine 5 % topical patch 1 patch topical DAILY #15 ea 11/20/21 (Lidoderm) Previous Rx's Medication Instructions Recorded ciclopirox 8 % topical solution 1 applic topical QHS 4 weeks #6.6 11/11/20 (Ciclodan) mL aspirin 81 mg chewable tablet 81 mg PO DAILY #90 tabs 04/21/21 atorvastatin 10 mg tablet 10 mg PO DAILY #90 tabs 04/21/21 amlodipine 10 mg tablet 10 mg PO DAILY #90 tabs 10/27/21 tamsulosin 0.4 mg capsule 0.4 mg PO DAILY #90 caps 11/16/21 cyclobenzaprine 5 mg tablet 5 mg PO DAILY PRN muscle spasm #10 11/20/21 tabs lidocaine 5 % topical patch 1 patch topical DAILY #15 ea 11/20/21 (Lidoderm) Allergies Allergy/AdvReac Type Severity Reaction Status Date / Time apple Allergy Unknown Skin Rash Verified 11/20/21 09:55 General Stated Complaint: Nk/Back Pain ANNALISA: 4 Review of Systems Narrative: Review of Systems Constitutional: negative Eyes: negative ENT: negative Cardiovascular: negative Respiratory: negative Gastrointestinal: negative : negative Musculoskeletal: Flank pain Skin: negative Neurologic: negative Psych: negative PFSH All Active Problems (Updated 11/20/21 @ 11:21 by James Romero MD) Back pain (Acute) Lung nodule (Acute) Chest pain (Acute) Nail fungus (Acute) Positive cardiac stress test (Acute) Hyperlipidemia (Chronic) Obstructive sleep apnea (Chronic 08/26/14) 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 Paternal Grandfather Heart disease Myocardial infarction Maternal Grandmother No problems noted. Paternal Grandmother Diabetes Son Ascue-Hthyzmwan-Mkcee (WPW) syndrome Daughter Depression Social History Smoking/Tobacco Use Status: Current-Occasional Tobacco Type: smokeless tobacco Tobacco: How many years used: 40 Smokeless tobacco user: chewing tobacco Quit status: considering quitting Second Hand Exposure: Yes Smoking risk assessment performed?: Yes Alcohol Intake: current Alcohol Intake frequency: a few times a week Alcohol type: beer Drug use: Never Substance use type: does not use Household members: spouse Housing: house Communication Needs: None Do you need help understanding health information?: Rarely Pets and animals: Yes Pets and animals: cat(s) and dog(s) Sexually active: Yes Do you think of yourself as: straight/heterosexual Current gender identity: male What is your relationship status?: How often do you talk on the phone with friends or family?: once per week How often do you get together with friends or relatives?: once per week How often do you attend oriental orthodox or christianity services?: 1-3 times per year Do you belong to any clubs or organized social groups?: no Panel score (0-1 are the most socially isolated patients): 1 Agree to transfusion: No Seatbelt use: always 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 Do you feel safe at home: Yes Do you feel safe in your relationship?: Yes Exam Narrative Exam Narrative: Physical Examination General: alert, awake, cooperative, resting comfortably, no acute distress HEENT: normocephalic, atraumatic; PERRL, EOM intact, conjunctiva normal; no nasal discharge; moist mucous membranes, oral and pharyngeal mucosa normal, tolerating secretions Neck: supple, trachea midline; full ROM Chest: normal to inspection Respiratory: normal respiratory effort, speaking in full sentences, clear to auscultation, no wheezing, rales or rhonchi Cardiac: regular rate, regular rhythm, S1S2 intact, no murmurs rubs or gallops GI: abdomen soft, non-tender, non-distended; no palpable mass or hepatosplenomegaly : No CVA tenderness Back: No CVA tenderness, no point tenderness along spine or paraspinal muscles however reproduction of symptomatology when patient bends his neck and touches his chin to his chest Skin: no lesions, rashes or trauma appreciated Neuro: AAOx3, normal speech, moving all extremities Extremities: Moving all extremities no signs of trauma Psych: Appropriate mood and affect Course Vital Signs Vital signs: Vital Signs Pulse 68 11/20/21 09:51 Respiratory Rate 18 11/20/21 09:51 Blood Pressure 149/80 H 11/20/21 09:51 Pulse Oximetry 98 11/20/21 09:51 Pulse 68 11/20/21 09:51 Respiratory Rate 18 11/20/21 09:51 Respiratory Effort Non-Labored 11/20/21 09:55 Blood Pressure 149/80 H 11/20/21 09:51 Blood Pressure Position Sitting 11/20/21 09:51 Pulse Oximetry 98 11/20/21 09:51 Oxygen Delivery Method Room Air 11/20/21 09:51 Oxygen Flow Rate 0 11/20/21 09:51 PAWSS Have you Been Recently Intoxicated or Drunk Within the Last 30 days?: No Have you Ever Experienced Previous Episodes of Alcohol Withdrawal?: No Have you ever Experienced Withdrawal Seizures?: No Have you ever Experienced Delirium Tremens(DT)s?: No Have you ever undergone Alcohol Rehabilitation Treatment (i.e, inpt ot outpatient treatment programs)?: No Have you ever Experienced Blackouts?: No Have you ever Combined Alcohol with other Downers within the last 90 days?: No Have you ever Combined Alcohol with any other Substance of Abuse during the last 90 days?: No Positive Blood Alcohol level on Presentation? [PCS.BAL]: No Evidence of Increased Autonomic Activity (i.e. HR>120, tremor, sweating, agitation, nausea)?: No Result: 0
[2021-11-20 10:26] LABS: Bilirubin Negative (Negative); Blood Trace-intact (Negative); Clarity Clear (Clear); Glucose 100 mg/dL (Negative); Ketones Negative (Negative); Leukocyte Esterase Negative (Negative); Nitrite Negative (Negative); Specific Gravity 1.025 (1.005-1.025); Urobilinogen 0.2 EU/dL (Up TO 0.2)
[2021-11-20 10:28] LABS: Bacteria Negative HPF (Negative); C & S Indicated? No; Casts Negative LPF (Negative); Crystals Negative HPF (Negative); Epithelial Cells Negative HPF (Negative); Mucus Trace (Negative); WBC 0-2 HPF (0-5)
--- NOTE | 2021-11-20 10:54 | DI.VRAD_ITS ---
PROCEDURE INFORMATION: Exam: CT Abdomen And Pelvis Without Contrast Exam date and time: 11/20/2021 10:19 AM Age: 56 years old Clinical indication: Abdominal pain; Other: RT flank pain; Patient HX: HX of kidney stones. TECHNIQUE: Imaging protocol: Computed tomography of the abdomen and pelvis without contrast. Radiation optimization: All CT scans at this facility use at least one of these dose optimization techniques: automated exposure control; mA and/or kV adjustment per patient size (includes targeted exams where dose is matched to clinical indication); or iterative reconstruction. COMPARISON: CT RENAL COLIC WO CONTRAST 09/15/2015 11:33 AM FINDINGS: Lungs: Right middle lobe 2 mm nodule. Image 1. Liver: Fatty infiltration liver. Gallbladder and bile ducts: Normal. No calcified stones. No ductal dilation. Pancreas: Normal. No ductal dilation. Spleen: Normal. No splenomegaly. Adrenal glands: Normal. No mass. Kidneys and ureters: No nephrolithiasis or hydronephrosis. Stomach and bowel: Sigmoid colon diverticulosis. Appendix: The appendix is normal. Intraperitoneal space: Unremarkable. No free air. No significant fluid collection. Vasculature: Unremarkable. No abdominal aortic aneurysm. Lymph nodes: Unremarkable. No enlarged lymph nodes. Urinary bladder: No urinary bladder calculi. Reproductive: Prostate gland measures 4.9 x 4.5 x 5.0 cm. Bones/joints: Advanced disc degeneration at L5-S1. No compression deformities.. No acute fracture. Soft tissues: Fat containing umbilical hernia. IMPRESSION: 1. No acute findings. 2. Micro nodules.For patients at low risk (minimal or absent history of smoking and of other known risk factors), no routine follow-up is indicated. For patients at high risk (history of smoking or of other known risk factors), consider optional CT Chest at 12 months. (Reference: Denys) REFERENCES: Denys Gray, et al. Guidelines for Management of Incidental Pulmonary Nodules Detected on CT Images: From the Fleischner Society 2017. Radiology. 2017;284(1):228-243. Dictated and Authenticated by: Thony Allen MD. Ordering:ARCELIA Ramirez MD
[2021-11-20] MEDS: Ketorolac 15 MG/ML VIAL IM (11:47)
[2021-11-20] MEDS: Cyclobenzaprine 10 MG TAB PO (11:47)
[2021-11-20] MEDS: Lidocaine 5% Patch 1 PATCH TP (11:47)
== END 2021-11-20 12:05 | disposition home or self-care (01) ==
PROVIDERS: Emergency Provider Emergency Medicine; PCP Nurse Practitioner Family
DX: M54.9 Dorsalgia, unspecified (principal); R10.9 Unspecified abdominal pain; R31.29 Other microscopic hematuria; F17.220 Nicotine dependence, chewing tobacco, uncomplicated; Z87.442 Personal history of urinary calculi
CPT/HCPCS: 96372; 99284; 74176; 81003; 81015; J1885

== ENCOUNTER 2021-12-22 08:18 | Outpatient (CLI) | payer BC, SELFPAY ==
--- NOTE | 2021-12-22 08:00 | DI.RAD_ITS ---
Exam(s) XR KNEE RT 3V AP,LAT,DENISE EXAM: XR KNEE RT 3V AP,LAT,DENISE CLINICAL HISTORY: right knee pain. TECHNIQUE: 2D digital imaging was performed. COMPARISON: CR XR knee RT 3V AP,lat,denise from 12/17/2018 FINDINGS: 3 views There is prominent soft tissue swelling anterior to the lower half of the patella and anterior to the entire length of the patellar ligament. However, this is unchanged from November 2018. There is no r adiopaque foreign body and there is no gas in the swollen soft tissue at this level. The anterior yaquelin rder of the patellar ligament is similar weighted. The posterior border of this structure is intact and there is no abnormal density in the anterior intra-articular Hoffa fat. There is also evidence o f a small joint effusion, similar to the previous study. There are no fractures nor degenerative lidya nges. No osteochondral defects. IMPRESSION: Abnormal findings as above but similar to images of the right knee performed 12/17/2018. If clinical ly indicated follow-up MRI can be performed for added specificity. DATA REPOSITORY: RADIATION DOSE DELIVERED:
== END 2021-12-22 08:19 | disposition home or self-care (01) ==
LOC: DIORS 08:18
PROVIDERS: PCP Nurse Practitioner Family; Referring Provider Nurse Practitioner Family; Visit Provider Student in an Organized Health Care Education/Training Program
DX: M25.461 Effusion, right knee (principal); M79.89 Other specified soft tissue disorders; M25.561 Pain in right knee
CPT/HCPCS: 73562

== ENCOUNTER 2023-03-14 03:11 | Outpatient (CLI) | payer BC, SELFPAY ==
[2023-03-14 07:49] LABS: Calculated LDL 99 mg/dL (<100); Cholesterol 188 mg/dL (<200); HDL Cholesterol 69 mg/dL (40-60); Triglyceride 101 mg/dL (<150)
[2023-03-14 18:03] LABS: PSA, Screening 5.4 ng/mL (<=3.5)
== END 2023-03-14 03:12 | disposition home or self-care (01) ==
LOC: LBO 03:13
PROVIDERS: PCP Nurse Practitioner Family; Visit Provider Nurse Practitioner Family
DX: E78.5 Hyperlipidemia, unspecified (principal); N13.8 Other obstructive and reflux uropathy; N40.1 Benign prostatic hyperplasia with lower urinary tract symptoms
CPT/HCPCS: 36415; 80061; 84153

== ENCOUNTER 2023-06-16 07:50 | Day surgery (SDC) | payer BC, SELFPAY ==
--- NOTE | 2023-06-15 16:44 | PDOC.DSDIS_ITS ---
Date of service: 06/16/23 Time of Service: 09:41 Discharge Plan Disposition Patient Disposition: Home Condition: Good Discharge Details Reason For Visit: colon scope Attending Provider: Jeannine Abdullahi Primary Care Provider: David Hernandez Home Meds and New Rx's Prescriptions: Continued aspirin 81 mg tablet,chewable 81 mg PO DAILY Qty: 90 4RF atorvastatin 10 mg tablet 10 mg PO DAILY Qty: 90 4RF amlodipine 10 mg tablet 10 mg PO DAILY Qty: 90 4RF tamsulosin 0.4 mg capsule 0.4 mg PO DAILY Qty: 90 3RF Discontinued bisacodyl [Dulcolax (bisacodyl)] 5 mg tablet,delayed release (DR/EC) 5 mg PO ONCE Qty: 4 0RF Rx Instructions: Take per colonoscopy instructions provided by ordering providers office polyethylene glycol 3350 17 gram/dose powder 17 g PO ONCE Qty: 238 0RF Rx Instructions: Take per colonoscopy instructions provided by ordering providers office Discharge Instructions Additional Instructions: DSU Colonoscopy Post- Op Instructions Instructions for Everyone who is given Anesthesia: For your safety, please do the following for the next twenty-four (24) hours: *Do Not operate a motor vehicle (car, truck, motorcycle, etc.) *Do Not drink alcoholic beverages or use any recreational drugs for the first 24 hours or while taking pain medications. The medications in your body may have a reaction that can be dangerous. *Do Not make any important decisions or sign any important papers. Findings: Normal ASA Monday Follow up: Repeat in 10 years time 1. No lifting over 20 pounds or strenuous activity for the first 24 hours after your procedure. After 24 hours there are no restrictions on your activity but you may feel fatigued for a few days. 2. After you arrive home you may have a light meal and return to your normal diet as you can tolerate it without feeling sick to your stomach. 3. You may have a bloated, gaseous feeling in your belly (abdomen) after a colonoscopy. Passing gas and belching will help. Walking or lying down on your left side with your knees flexed may relieve the discomfort. Call the office at [phone] (Office) or [phone] (Hospital) right away if you notice any of the following: a.Vomiting of blood or ?coffee ground stools?. b.Rectal bleeding 1Tbsp, blood clots or continuous bleeding. c.Severe belly (abdominal) pain. d.A hard distended belly (abdomen) and an inability to pass gas. 4. Please don?t expect to have a normal BM (bowel movement) for 2-3 days after your procedure. 5. If there are questions regarding the findings of your procedure, please contact your doctor 6. If you are unable to contact your doctor with a problem, contact the hospital at [phone]. 7. Continue all your regular medications unless directed otherwise. I understand the above instructions and have no questions. Signature of Patient or Adult Escort Name of Responsible Adult Escort Signature of Nurse Date/Time Activity:: see above Diet:: see above Discharge Orders Discharge Orders: Discharge Order (Routine); Ordered 06/16/23 Ordered By: Jeannine Abdullahi DS: Diagnosis Discharge Diagnosis (1) Positive cardiac stress test: Status: Acute (2) Hyperlipidemia: Status: Chronic (3) BPH w urinary obs/LUTS: Status: Chronic (4) Lung nodule: Status: Acute (5) Obstructive sleep apnea: Status: Chronic (6) Screening for malignant neoplasm of colon performed: Status: Acute Asessment and Plan: The patient is seen and examined after their colonoscopy.? The patient has been able to pass gas.? They are not having abdominal pain.? They have been able to tolerate liquids and a snack.? They do not have any nausea or vomiting.? They are not having any chest pain or shortness of breath.??? They are not having any rectal bleeding. Their vital signs have been stable-see nursing notes. We discussed findings during their colonoscopy, and any biopsies that were done/polyps that were removed. The patient will be sent a letter with any biopsy results, and when to repeat the colonoscopy.-see discharge instructions. Patient was given explicit instructions to follow-up regarding colonoscopy-refer to discharge instructions.? We reviewed resumption of medications. Patient verbalized understanding and discharged in stable and satisfactory condition- See nursing notes.
--- NOTE | 2023-06-15 16:44 | W.COLOREPORT ---
Date of service: 06/16/23 Time of Service: 09:39 Colonoscopy Report Date of procedure: 06/16/23 Pre-op diagnosis general: CRC screening Post-op diagnosis procedure note: same Surgeon: Jeannine Abdullahi Anesthesia Type: General:No Airway Estimated blood loss (mL): 0 Pathology: none sent Complications: None Disposition: same day Prep: Miralax/Dulcolax Procedure Description: After informed consent was obtained the patient was taken to the procedure room and placed in a left decubitous position. Monitors were applied and a time out was done. The patients name, date of , procedure, allergies to medications and metal in their body was reviewed. The patient was then sedated. Once sedated and comfortable a rectal exam was done. External exam was normal. Internal exam revealed a normal sphincter tone and no palpable masses. The prostate without masses. The scope was then introduced and retrofelexed. No internal hemorrhoids were identified. The scope was then advanced to the cecum without difficulty. The TI and appendiceal orifice were identified. The scope was then slowly retracted over 12 minutes back into the rectum. There are no polyps, AVMs, or diverticula visualized today. The mucosa is pink and healthy with a normal vascular pattern the scope was removed and the patient was woken up and taken back to Same day surgery in stable condition. The patient tolerated the procedure well and there were no immediate complications. Follow up: The patient should follow up in 10 years unless they develop changes in bowel habits or other new gastrointestinal complaints. Washington Bowel Prep Washington Bowel Prep Right Colon: 3 Left Colon: 3 Transverse Colon: 3 Total Score: 9
[2023-06-16 08:31] VITALS: BP 139/80; PULSE 75; RESP 18; TEMP 36.4; O2SAT 96
[2023-06-16 09:09] VITALS: BMI 31.1
[2023-06-16] MEDS: Lactated Ringers 1,000 ML 80 ML IV (09:09)
--- NOTE | 2023-06-16 09:09 | W.ANESPRE ---
General Info Date of Service Date Performed: 06/16/23 Height: 5 ft 8 in Weight: 92.8 kg Body Mass Index (BMI): 31.1 Surgical Procedure: Operation Date: 06/16/23 09:05 Proposed Procedure Side Surgeon bridgett Abdullahi, Meds Allergies and Home Medications Allergies Allergy/AdvReac Type Severity Reaction Status Date / Time apple Allergy Unknown Skin Rash Verified 06/16/23 08:24 Home Medication Medication Instructions Recorded aspirin 81 mg chewable tablet 81 mg PO DAILY #90 tabs 05/10/22 atorvastatin 10 mg tablet 10 mg PO DAILY #90 tabs 07/08/22 amlodipine 10 mg tablet 10 mg PO DAILY #90 tabs 11/04/22 tamsulosin 0.4 mg capsule 0.4 mg PO DAILY #90 caps 02/03/23 Current Visit Medications: Current Medications Generic Name Dose Route Start Last Admin Trade Name Freq PRN Reason Stop Dose Admin Hyoscyamine Sulfate 0.125 mg 06/16/23 02:55 Hyoscyamine 0.125 Mg Sl/Oral/Chew SL 07/16/23 02:54 DIRECTED PRN Ringer's Solution 1,000 mls @ 80 mls/hr 06/16/23 06:00 IV 07/15/23 23:59 [facility]ION [facility] IV Miscellaneous Supplies 1 each 06/16/23 06:00 Iv Access IV 07/15/23 23:59 DIRECTED YENIFER Ondansetron HCl 4 mg 06/16/23 02:55 Ondansetron 4 Mg/2 Ml Vial IVP 07/16/23 02:54 Q4H PRN PRN Nausea / Vomiting Sodium Chloride 0 ml 06/16/23 06:00 Normal Saline Flush 10 Ml Syr IV 07/15/23 23:59 PRN PRN Sodium Chloride 0 ml 06/16/23 06:00 Normal Saline 10 Ml Vial IJ 07/15/23 23:59 DIRECTED PRN Sterile Water 0 ml 06/16/23 06:00 Water,Injection,Sterile 10 Ml Vial IJ 07/15/23 23:59 DIRECTED PRN PFSH Active Problems Active Problems: Problem Status Onset Code Ventral hernia K43.9 Prepatellar bursitis, right knee M70.41 Lung nodule R91.1 Positive cardiac stress test R94.39 Hyperlipidemia E78.5 Obstructive sleep apnea 08/26/14 G47.33 BPH w urinary obs/LUTS 08/11/17 N40.1, N13.8 Medical History Medical History Rt flank pain Knee effusion, right ice, elevation above the level of the heart avoid overuse if not improved in 1 week, will consider draining the knee Pt verbalized understanding and agreement with plan Surgical History Surgical History Hx of cardiac cath BROKEN TOE Tobacco Smoking/Tobacco Use Status: Current-Occasional Tobacco Type: smokeless tobacco Smokeless tobacco user: chewing tobacco Passive smoking exposure: Yes Second hand exposure: Yes Alcohol Alcohol Intake: current Alcohol intake frequency: a few times a week Alcohol type: beer Substance Use Substance use: Never Substance use type: does not use Details: alcohol: t-5 Vital Signs and Lab Results Vital Signs Most Recent Vital Signs in EMR: Most Recent Vital Signs Temp Pulse Resp BP Pulse Ox 36.4 C L 75 18 139/80 96 06/16/23 08:31 06/16/23 08:31 06/16/23 08:31 06/16/23 08:31 06/16/23 08:31 Lab Results Blood Type / Crossmatch: No Data to Display Complete Blood Count: No Data to Display Complete Metabolic Panel: No Data to Display Liver Function Panel: No Data to Display Coagulation Panel: No Data to Display Cardiac Panel: No Data to Display Arterial Blood Gas: No Data to Display Venous Blood Gas: No Data to Display Pancreas Panel: No Data to Display Thyroid Panel: No Data to Display Infectious Disease: No Data to Display Blood Cultures: No Data to Display Toxicology Panel: No Data to Display Anesthesia Assessment and Plan Anesthesia History Personal History: No History of Anesthesia Complications Family History: No Family History of Anesthesia Complications Exercise Tolerance Exercise Tolerance: Metabolic Equivalents>4 Pertinent Negatives Pertinent Negatives: No Symptoms of GERD Cardiac & Pulmonary Exam Cardiac Exam: Normal S1/S2 Heart Sounds Pulmonary Exam: Clear Bilateral Breath Sounds Implantable Cardiac Device Does patient have a Pacemaker or an ICD?: No Airway Exam Known Difficult Airway: No Mallampati Class: 2 Mouth Opening: Normal (> 3cm) Thyromental Distance: Greater than 3 cm Neck Range of Motion: Full ROM Neck Circumference: Normal Teeth Condition: Normal Dentition ASA Classification ASA Score: ASA 2 Emergency Case?: No NPO Status NPO Status: NPO Clears >2 hours, Solids >8 hours Anesthesia Plan Resuscitation Status: Full Code Anesthesia Technique: General Anesthesia Airway Planned: Natural Airway Monitors Used: Standard Monitors
[2023-06-16 09:35] VITALS: BP 103/61; PULSE 64; RESP 16; TEMP 36.6; O2SAT 99
--- NOTE | 2023-06-16 09:43 | W.ANESPOSTOP ---
Postoperative Evaluation Date, Time and Location Date Performed: 06/16/23 Time Performed: 09:44 Patient Location: Day Surgery Unit Vital Signs Most Recent Imported Vital Signs: Most Recent Vital Signs Temp Pulse Resp BP Pulse Ox 36.6 C 64 16 103/61 99 06/16/23 09:35 06/16/23 09:35 06/16/23 09:35 06/16/23 09:35 06/16/23 09:35 Pain Score Most Recent Pain Score: Most Recent Pain Score Pain Level 0 06/16/23 09:35 Assessment Mental Status: Awake (Alert & Oriented to Patient Baseline) Airway and Respiratory Function: Patent airway with normal (patient baseline) respiratory exam Cardiovascular Function: Hemodynamically Stable Hydration Status: Adequately Hydrated Nausea & Vomiting: No Nausea or Vomiting Pain: Pt. Denies Any Pain Peripheral Nerve Block: Patient did not receive a nerve block
[2023-06-16 10:05] VITALS: BP 127/85; PULSE 60; RESP 16; TEMP 36.5; O2SAT 98
== END 2023-06-16 10:27 | disposition home or self-care (01) ==
PROVIDERS: PCP Nurse Practitioner Family; Visit Provider Surgery
PROC: 0DJD8ZZ Inspection of Lower Intestinal Tract, Via Natural or Artificial Opening Endoscopic (ICD-10-PCS; CPT 45378; principal; 2023-06-16 09:00)
DX: Z12.11 Encounter for screening for malignant neoplasm of colon (principal); G47.33 Obstructive sleep apnea (adult) (pediatric); E78.5 Hyperlipidemia, unspecified
CPT/HCPCS: 45378; J2001; J2704

== ENCOUNTER 2024-01-30 03:14 | Outpatient (CLI) | payer BC, SELFPAY ==
[2024-01-30 15:08] LABS: Hemoglobin A1C 5.5 % (<5.7)
[2024-01-30 15:40] LABS: Cholesterol 188 mg/dL (<200); HDL Cholesterol 55 mg/dL (40-60); Triglyceride 569 mg/dL (<150)
[2024-01-30 15:52] LABS: LDL CHOLESTEROL 88 mg/dL (<100)
[2024-01-30 23:21] LABS: PSA, Screening 3.6 ng/mL (<=3.5)
== END 2024-01-30 03:15 | disposition home or self-care (01) ==
LOC: LBO 03:15
PROVIDERS: PCP Nurse Practitioner Family; Visit Provider Nurse Practitioner Family
DX: Z13.220 Encounter for screening for lipoid disorders (principal); Z12.5 Encounter for screening for malignant neoplasm of prostate; Z13.1 Encounter for screening for diabetes mellitus
CPT/HCPCS: 36415; 80061; 83721; 84153; 83036

== ENCOUNTER 2024-04-12 01:11 | Outpatient (CLI) | payer BC, SELFPAY ==
[2024-04-12 08:11] LABS: Calculated LDL 72 mg/dL (<100); Cholesterol 166 mg/dL (<200); HDL Cholesterol 62 mg/dL (40-60); Triglyceride 162 mg/dL (<150)
== END 2024-04-12 01:12 | disposition home or self-care (01) ==
PROVIDERS: PCP Nurse Practitioner Family; Visit Provider Nurse Practitioner Family
DX: Z13.220 Encounter for screening for lipoid disorders (principal)
CPT/HCPCS: 36415; 80061

== ENCOUNTER 2024-07-03 09:55 | Emergency (ER) | payer BC, SELFPAY ==
[2024-07-03] VITALS (33 sets, daily range): BP systolic 129–156; BP diastolic 67–93; PULSE 56–82; RESP 11–23; TEMP 36.7; O2SAT 93–97
--- NOTE | 2024-07-03 10:00 | RT.EKG_ITS ---
APPROVED REPORT Exam: Resting ECG Reason for Exam: Chest Pain Patient Location: E HR:87 bpm ECG Measurements Heart Rate [address] 121 P 49 QRSd 81 QRS 45 QT 341 T -90 QTc 410 Conclusion Sinus rhythm, rate 87 No interval abnormalities No STEMI Diffuse T wave inversion, slightly increased from priors (specifically lead II, III)
--- NOTE | 2024-07-03 10:15 | DI.RAD_ITS ---
Exam(s) XR CHEST 2V PA LATERAL EXAM: XR CHEST 2V PA LATERAL CLINICAL HISTORY: Chest pain TECHNIQUE: 2D digital imaging was performed of the chest. Two images were obtained. PA and lateral views were obtained. COMPARISON: CR XR CHEST 2V PA LATERAL from 03/29/2021 FINDINGS: MEDIASTINUM: Normal. HEART: Normal. PULMONARY VASCULATURE: Normal. LUNGS: Clear. PLEURAL SPACE: No pleural effusion or pneumothorax. BONE:Within normal limits for the patient's age. OTHER FINDINGS:Normal. IMPRESSION: No acute pulmonary findings. DATA REPOSITORY: RADIATION DOSE DELIVERED:
--- NOTE | 2024-07-03 10:32 | ED.GENADUL_ITS ---
Discharge Plan Disposition Patient Disposition: Home Condition: Stable Discharge Details Clinical Impression: Chest pressure, Episodic lightheadedness Primary Care Provider: David Hernandez ED Provider: Adina Ram Home Meds and New Rx's Prescriptions: No Action aspirin 81 mg tablet,chewable 81 mg PO DAILY Qty: 90 4RF amlodipine 10 mg tablet 10 mg PO DAILY Qty: 90 4RF atorvastatin 10 mg tablet 10 mg PO DAILY Qty: 90 4RF tamsulosin 0.4 mg capsule 0.4 mg PO DAILY Qty: 90 3RF Discharge Instructions Instructions: Dizziness, Adult ED Additional Instructions: You were seen in the emergency department today for evaluation of heavy sensatio n in your chest and lightheadedness. In our department you do full physical examination performed, you had laboratory studies that were reassuring including 2 negative cardiac enzymes, and had an EKG that did not show any sign of damage to your heart. You had a chest x-ray that was normal, and we checked your blood pressure in multiple different positions and that did not show that your blood pressure was getting too low to suggest that you were dehydrated. We monitored you on our ekg monitor tech and did not note any irregular heart rhythms. Unfortunately, we are sometimes unable to determine the exact cause of symptoms here in the emergency department. I recommend that you call your primary care provider, and you should be seen in the next few days for reevaluation and may require additional workup, such as Holter monitoring, stress testing, cardiac echo, etc. You can always return to the emergency department especially if your symptoms change or worsen, you lose consciousness, or have any other concerns. Please follow-up with your primary care provider in the next few days to discuss this visit and any symptoms that change, worsen, or persist. Thank you for allowing us to be part of your care. HPI General Mode of arrival: ambulatory . Date/Time Provider Initiated Documentation: 07/03/24 10:13 . Limitations to Documentation: no limitations . Information obtained by: patient and old records reviewed . HPI Narrative: HPI: This is a 58-year-old male patient with a past medical history significant for hyperlipidemia, REMBERTO, and a history of a positive cardiac stress test 2 to 3 years ago, no history of cardiac stenting, presenting for evaluation of chest heaviness and lightheadedness. The patient reports that 4 days ago he started to notice chest heaviness during his normal day-to-day activities. He notices that it occasionally radiates down to his left arm, seems to be fairly constant and has not identified any propagating or palliating factors such as breathing, position, movement or palpation. The patient reports that when he goes from sitting to standing or standing for too long he feels slightly lightheaded, and on several occasions has had to sit down. He has never had any loss of consciousness, has not sustained any injuries. The patient reports that he has not taken any medications for management of the symptoms, was prompted to seek care due to an episode of dizziness this morning and the persistent pain. Exam: Gen: Awake and alert, in no apparent distress HEENT: Non-icteric sclera Neck: Supple Lungs: No apparent respiratory distress, normal respiratory effort. Lung sounds clear and equal bilaterally without wheezes, rhonchi, rales CV: Appears well perfused, chest pain not reproducible with palpation of the chest wall, heart with regular rate and rhythm, no murmurs auscultated Abdomen: Non-distended, soft, nontender MSK: Moves 4 extremities without apparent limitation in ROM, no lower extremity edema, no unilateral calf swelling or tenderness. Skin: Visualized skin without rashes, cyanosis. Neuro: Normal Gait, no obvious focal deficits or facial asymmetry. Speaks in full, clear sentences. Psych: Appropriate for situation. MDM: This is a 58-year-old male patient presenting for evaluation of chest pain and positional lightheadedness. My differential includes but is not limited to ACS including STEMI, NSTEMI, unstable angina, certainly considered arrhythmia, pericarditis/myocarditis, aortic pathology. Considered orthostasis, vasovagal syndrome, dehydration and metabolic derangement, anemia. Considered pulmonary abnormalities including pneumonia, bronchitis, pleural effusion, pulmonary edema, reactive airway disease, pneumothorax. The patient is without tachycardia, hypoxia, or a pleuritic component to his pain to significantly increase my concern for pulmonary embolism. No GI symptoms or vomiting to suggest Boerhaave's, esophagitis, peptic ulcer disease, pancreatitis. Considered musculoskeletal pathologies including costochondritis, chest wall pain. We will obtain an EKG, laboratory studies with CBC, CMP, magnesium, troponin, and a chest x-ray. I will provide the patient with 324 mg of aspirin. ED Course: EKG obtained and reviewed by myself, showing a sinus rhythm without evidence of STEMI, patient does have diffuse T wave abnormalities which was appreciated on his most recent EKG, though slightly increased as I now appreciate T wave inversions in lead II and III which were flat and/or not present on last EKG. I independently interpreted the laboratory studies, which show no significant leukocytosis, anemia, or thrombocytopenia. The chemistry panel is without evidence of electrolyte abnormality, kidney dysfunction, or liver injury. Troponin was negative x 2 rechecks without delta interval change, and per high- sensitivity troponin protocol he does not require further checks given his duration of symptoms. Lipase is low, chest x-ray reviewed by myself and showing no abnormalities to account for his symptoms. Orthostatic vital signs were assessed and were negative. I had an extended conversation with this patient regarding the next septic workup and management, as I do think that he would benefit from outpatient reassessment, and potential rescheduling of stress testing, cardiac echo, and/or Holter monitoring. We did monitor him on telemetry in our emergency department for several hours and did not note any arrhythmias to account for his lightheadedness. At this time, the patient has had a full medical evaluation and is safe for discharge to home. They are hemodynamically stable, ambulatory, and tolerating PO. They are understanding of the follow-up plan and return precautions. They left our facility without incident. Adina Ram MD Related Data Home Medications ?Medication ?Instructions ?Recorded ?Confirmed amlodipine 10 mg tablet 10 mg PO DAILY #90 tabs 10/02/23 07/03/24 aspirin 81 mg chewable tablet 81 mg PO DAILY #90 tabs 10/02/23 07/03/24 atorvastatin 10 mg tablet 10 mg PO DAILY #90 tabs 10/02/23 07/03/24 tamsulosin 0.4 mg capsule 0.4 mg PO DAILY #90 caps 02/19/24 07/03/24 Previous Rx's ?Medication ?Instructions ?Recorded amlodipine 10 mg tablet 10 mg PO DAILY #90 tabs 10/02/23 aspirin 81 mg chewable tablet 81 mg PO DAILY #90 tabs 10/02/23 atorvastatin 10 mg tablet 10 mg PO DAILY #90 tabs 10/02/23 tamsulosin 0.4 mg capsule 0.4 mg PO DAILY #90 caps 02/19/24 Allergies Allergy/AdvReac Type Severity Reaction Status Date / Time apple Allergy Unknown Skin Rash Verified 07/03/24 10:10 General Stated Complaint: Chest Pain ANNALISA: 3 Course Vital Signs Vital signs: Vital Signs Temperature 36.7 C 07/03/24 10:09 Pulse 82 07/03/24 10:09 Respiratory Rate 20 07/03/24 10:09 Blood Pressure 156/79 H 07/03/24 10:09 Pulse Oximetry 96 07/03/24 10:09 Temperature 36.7 C 07/03/24 10:09 Pulse 82 07/03/24 10:09 Respiratory Rate 20 07/03/24 10:09 Blood Pressure 156/79 H 07/03/24 10:09 Blood Pressure Position Sitting 07/03/24 10:09 Pulse Oximetry 96 07/03/24 10:09 Oxygen Delivery Method Room Air 07/03/24 10:09 Oxygen Flow Rate 0 07/03/24 10:09 Medical Decision Making Quality:SDOH Health Related Social Needs: No Data to Display PFSH All Active Problems (Updated 07/03/24 @ 14:03 by Adina Ram MD) Episodic lightheadedness (Acute) Chest pressure (Acute) Screening for malignant neoplasm of colon performed (Acute) Ventral hernia (Acute) Prepatellar bursitis, right knee (Acute) Lung nodule (Acute) Benign. No need to evaluate further. 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) Medical History (Updated 07/03/24 @ 14:03 by Adina Ram MD) Rt flank pain Knee effusion, right ice, elevation above the level of the heart avoid overuse if not improved in 1 week, will consider draining the knee Pt verbalized understanding and agreement with plan Surgical History (Updated 06/19/23 @ 15:14 by Palak Rhodes) History of colonoscopy (~05/2023) Hx of cardiac cath BROKEN TOE Family History (Updated 12/02/21 @ 11:00 by Sheela Arias) Mother Essential hypertension Father , 62 Diabetes Heart disease Brother Alcohol abuse Essential hypertension Substance abuse Maternal Grandfather No problems noted. Paternal Grandfather Heart disease Myocardial infarction Maternal Grandmother , 84 No problems noted. Paternal Grandmother , 95 Diabetes Son Eivxv-Sjeqzerkk-Icdxo (WPW) syndrome Daughter Depression Social History (Updated 01/30/24 @ 09:57 by Siri Mendez) Smoking/Tobacco Use Status: Current-Occasional Tobacco Type: smokeless tobacco Tobacco: How many years used: 40 Smokeless tobacco user: chewing tobacco Quit status: not considering quitting Second Hand Exposure: Yes Smoking risk assessment performed?: Yes Alcohol Intake: current Alcohol Intake frequency: 3 or more drinks per day Alcohol type: beer Details: 5-6 drinks on typical day, 6 or more drinks daily or almost daily Drug use: Never Substance use type: does not use Counseling given: No Details: alcohol: t-5 Caregiver/Support person: Yes Household members: spouse and children Housing: house Communication Needs: None Do you need help understanding health information?: Rarely Pets and animals: Yes Pets and animals: dog(s) Sexually active: Yes Do you think of yourself as: straight/heterosexual Current gender identity: male What is your relationship status?: How often do you talk on the phone with friends or family?: once per week How often do you get together with friends or relatives?: once per week How often do you attend baptism or episcopalian services?: 1-3 times per year Do you belong to any clubs or organized social groups?: no Panel score (0-1 are the most socially isolated patients): 1 What type of physical activity do you participate in: none Queenie/Religious: No preference Special queenie needs: No Agree to transfusion: No Seatbelt use: always Helmet use: Yes Helmet use: sometimes 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
[2024-07-03] MEDS: Aspirin 81 MG CHEW 324 MG CH (10:47)
[2024-07-03 10:55] LABS: Abs Immature Grans 0.02 10^3/uL (0.0-0.06); Absolute Basophil Count 0.03 10^3/uL (0.0-0.2); Absolute Eosinophil Count 0.08 10^3/uL (0.0-0.7); Absolute Lymphocyte Count 1.25 10^3/uL (1.2-3.4); Absolute Monocyte Count 0.32 10^3/uL (0.1-0.8); Absolute Neutrophil Count 2.79 10^3/uL (1.2-6.7); Basophils % 0.7 %; Eosinophils % 1.8 %; HCT 42.2 % (40.0-50.0); HGB 15.4 g/dL (13.5-17.5); Immature Grans % 0.4 %; Lymphocytes % 27.8 %; MCH 30.4 pg (27.0-33.0); MCHC 36.5 % (32.0-36.0); MCV 83 fL (80-95); Monocytes % 7.1 %; Neutrophils % 62.2 %; Platelet Count 192 10^3/uL (130-400); RBC 5.07 10^6/uL (4.36-5.78); RDW 12.6 % (11.8-14.1); RDW-SD 37.7 fL; WBC 4.49 10^3/uL (4.4-10.8)
[2024-07-03 11:20] LABS: ALT 49 U/L (16-63); AST 22 U/L (15-37); Albumin 4.1 g/dL (3.4-5.0); Alkaline Phosphatase 101 U/L (46-116); Anion Gap 8.7 mmol/L (3-11); BUN 16 mg/dL (7-18); Bilirubin, Total 0.6 mg/dL (0.2-1.0); CO2 27.3 mmol/L (21.0-32.0); CREATININE 1.1 mg/dL (0.70-1.30); Calcium 8.9 mg/dL (8.5-10.1); Chloride 106 mmol/L (98-107); Estimated GFR 78.79 (mL/min/1.73m2); Glucose 158 mg/dL (74-106); Lipase 37 U/L (<78); Magnesium 2.4 mg/dL; Potassium 3.4 mmol/L (3.5-5.1); Sodium 142 mmol/L (136-145); Total Protein 7.3 g/dL (6.4-8.2); Troponin I 6 ng/L (<or=76)
[2024-07-03 12:17] LABS: Troponin I 6 ng/L (<or=76)
== END 2024-07-03 18:13 | disposition home or self-care (01) ==
PROVIDERS: Emergency Provider Emergency Medicine; PCP Nurse Practitioner Family
DX: R07.9 Chest pain, unspecified (principal); R42 Dizziness and giddiness; E78.5 Hyperlipidemia, unspecified; F17.290 Nicotine dependence, other tobacco product, uncomplicated; Z79.82 Long term (current) use of aspirin
CPT/HCPCS: 36415; 80053; 83690; 93005; 99285; 71046; 83735; 84484; 85025; 93010; 99284

== ENCOUNTER 2024-07-08 01:57 | Outpatient (CLI) | payer BC, SELFPAY ==
[2024-07-08 15:00] LABS: Hemoglobin A1C 5.5 % (<5.7)
[2024-07-08 16:01] LABS: TSH (W/Ref FT4) 2.06 uIU/mL (0.36-3.74)
== END 2024-07-08 01:58 | disposition home or self-care (01) ==
PROVIDERS: PCP Nurse Practitioner Family; Visit Provider Nurse Practitioner Family
DX: E78.2 Mixed hyperlipidemia (principal); R73.09 Other abnormal glucose
CPT/HCPCS: 36415; 83036; 84443

== ENCOUNTER 2024-07-25 13:50 | Outpatient (CLI) | payer BC, SELFPAY ==
--- NOTE | 2024-07-25 13:45 | RT.EKG_ITS ---
APPROVED REPORT Exam: Resting ECG Reason for Exam: NPW baseline needed Patient Location: O HR:70 bpm ECG Measurements Heart Rate 70 AXIS OR 124 P 31 QRSd 93 QRS 12 QT 368 T 40 QTc 398 Conclusion Sinus rhythm...normal P axis, V-rate 50- 99 Normal Electrocardiogram
== END 2024-07-25 13:51 | disposition home or self-care (01) ==
LOC: DI.CARD 13:51
PROVIDERS: PCP Nurse Practitioner Family; Visit Provider Internal Medicine Cardiovascular Disease
DX: R07.89 Other chest pain (principal); Z98.890 Other specified postprocedural states
CPT/HCPCS: 93010